=== PATIENT | female | born 1950 | race Caucasian/White ===

== ENCOUNTER 2023-03-04 05:01 | Emergency (ER) | payer OTHER ==
[~2023-03-04] VITALS: Ht 165.1 cm; Wt 68.0 kg
[2023-03-04 05:01] VITALS: BP 147/88; PULSE 81; RESP 18; TEMP 97.8; O2SAT 97
[2023-03-04 06:45] LABS: BASOPHILS # (AUTO) 0.1 K/uL (0.00-0.22); EOSINOPHILS % (AUTO) 0.8 % (0.0-4.0); HEMATOCRIT 40.6 % (36-48); HEMOGLOBIN 13.6 g/dL (12.0-16.0); LYMPHOCYTES # (AUTO) 1.3 K/uL (2.5-16.5); MEAN CORPUSCULAR HEMOGLOBIN 29 pg (27-31); MEAN CORPUSCULAR HGB CONC 33 g/dL (33-37); MEAN CORPUSCULAR VOLUME 87.8 fL (80-94); MONOCYTES # (AUTO) 0.3 K/uL (0.8-1.0); MONOCYTES % (AUTO) 6.6 % (1.7-9.3); NEUTROPHILS # (AUTO) 3.1 K/uL (1.8-7.7); NEUTROPHILS % (AUTO) 64.6 % (42.2-75.2); PLATELET COUNT (AUTO) 219 K/uL (140-450); RED BLOOD CELL COUNT(AUTO) 4.63 MIL/uL (4.20-5.40); RED CELL DISTRIBUTION WIDTH 14.7 % (11.6-13.7); WHITE BLOOD COUNT (AUTO) 4.8 K/uL (4.8-10.8)
[2023-03-04 07:05] LABS: ANION GAP 9.1 (8-16); CALCIUM 9.1 mg/dL (8.5-10.1); CHLORIDE 96 mmol/L (98-107); CREATININE 0.7 mg/dL (0.6-1.3); GLUCOSE 99 mg/dL (74-106); POTASSIUM 4.1 mmol/L (3.5-5.1); SODIUM SERUM 133 mmol/L (136-145); UREA NITROGEN, BLOOD 11 mg/dL (7-18)
[2023-03-04 07:13] LABS: MAGNESIUM 2.2 mg/dL (1.8-2.4)
[2023-03-04 08:31] VITALS: BP 144/78; PULSE 75; RESP 12; TEMP 97.8; O2SAT 98
== END 2023-03-04 08:31 | disposition home or self-care (01) ==
LOC: MED 05:01
DX: R00.2 Palpitations (principal); I48.20 Chronic atrial fibrillation, unspecified; I10 Essential (primary) hypertension; F41.9 Anxiety disorder, unspecified; Z79.01 Long term (current) use of anticoagulants
CPT/HCPCS: 36415; 71045; 80048; 81002; 83735; 84443; 84484; 85025; 93005; 99285